=== PATIENT | male | born 1965 | race American Indian/Alaskan Native ===

== ENCOUNTER 2018-10-05 10:02 | Day surgery (SDC) | payer BC ==
[~2018-10-05 10:02] MED LIST: ANCEF/STERILE WATER 2 GM/20 ML IV NR; TORADOL ONE
[2018-10-05] MEDS ORDERED: LACTATED RINGERS 1,000 ML ONE ×2 (11:48→14:15)
[2018-10-05] MEDS ORDERED: SUBLIMAZE ONE ×2 (12:16→13:01)
[2018-10-05] MEDS ORDERED: XYLOCAINE MPF 2% ONE (12:16)
[2018-10-05] MEDS ORDERED: DIPRIVAN 10 MG/ML IV ONE (12:16)
--- NOTE | 2018-10-05 12:51 | Post Operative Note ---
Date of procedure: 10/05/18 Pre-op diagnosis: left renal stone Post-op diagnosis: same Findings: as above Procedure: L ESWL Anesthesia: MARIANO Surgeon: ESAU AUSTIN Estimated blood loss: none Pathology: none Condition: stable Disposition: PACU
--- NOTE | 2018-10-05 12:52 | Discharge Summary ---
Short Stay Discharge Plan Activity: other (no straining) Weight Bearing Status: Full Weight Bearing Diet: low fat, low cholesterol, low salt Special Instructions: other (inc fluisa ) Follow up with: CHAZ ZAIDI MD [Primary Care Provider] - 7 Days DEVEN BARNES MD [Staff Physician] - 7 Days
[2018-10-05] MEDS ORDERED: ZOFRAN ONE (13:23)
--- NOTE | 2018-10-05 13:23 | Operative Report ---
PREOPERATIVE DIAGNOSIS: Large left UPJ stone post stent. POSTOPERATIVE DIAGNOSES: Large left UPJ stone post stent. PROCEDURE: Left lithotripsy. SURGEON: Philippe Steiner MD ANESTHESIA: General. FINDINGS: This is a gentleman with a large stone along the stent left UPJ, now presents for lithotripsy. DESCRIPTION OF PROCEDURE: The patient was brought to the operating room and placed on the operating table. Following induction of anesthesia, stone was well localized easily in both the AP and oblique images. Shocks were begun at 1 kV, increased to a maximum of 8 kV. Excellent fragmentation was achieved. The patient tolerated the procedure well. We had a renal pause. We gradually went up to 8 kV and he may need further procedures to break it up even more, but we had good fragmentation, brought to recovery in stable condition. JOB# [id number] CRISTIANO/CELESTINE
[2018-10-05 14:59] VITALS: BP 133/84
--- NOTE | 2018-10-05 15:24 | Anesthesia Consultation ---
Anesthesia Consult and Med Hx Date of service: 10/05/18 - Airway Anesthetic Teeth Evaluation: Good ROM Head & Neck: Adequate Mental/Hyoid Distance: Adequate Mallampati Class: Class III Intubation Access Assessment: Possibly Difficult - Pulmonary Exam CTA: Yes - Cardiac Exam Cardiac Exam: RRR - Pre-Operative Health Status ASA Pre-Surgery Classification: ASA2 Proposed Anesthetic Plan: General - Pulmonary Hx Smoking: No Hx Sleep Apnea: No (JORGE LUIS PRE SCREEN HIGH RISK) - Cardiovascular System Hx Hypertension: Yes (took amlodipine today) - Central Nervous System CVA: No - Gastrointestinal Hx Gastroesophageal Reflux Disease: No - Endocrine Hx Insulin Dependent Diabetes: No - Other Systems Hx Cancer: No Hx Obesity: Yes - Additional Comments Anesthesia Medical History Comments: No hx anesthetic complications.
--- NOTE | 2018-10-05 15:24 | Anesthesia Day of Surgery ---
Anesthesia Day of Surgery - Day of Surgery Patient Examined: Yes Patient H&P Reviewed: Yes Patient is NPO: Yes
--- NOTE | 2018-10-05 15:24 | Post Anesthesia Evaluation ---
- Post Anesthesia Evaluation Patient Participated: Yes Airway Patent: Yes Stable Respiratory Function: Yes Nausea/Vomiting: No Temp > 96.8F: Yes Pain Manageable: Yes Adequeate Hydration: No
== END 2018-10-05 15:15 | disposition home or self-care (01) ==
LOC: OR 10:02
PROVIDERS: ATTEND Urology
DX: N20.1 Calculus of ureter (principal); H40.9 Unspecified glaucoma; I10 Essential (primary) hypertension; E66.9 Obesity, unspecified; Z68.35 Body mass index [BMI] 35.0-35.9, adult; Z98.890 Other specified postprocedural states; Z79.01 Long term (current) use of anticoagulants; Z79.899 Other long term (current) drug therapy
CPT/HCPCS: 50590; J0690; J1885; J2405; J2704; J3010; J7120

== ENCOUNTER 2019-01-11 13:48 | Day surgery (SDC) | payer BC ==
--- NOTE | 2019-01-11 14:59 | Anesthesia Consultation ---
Anesthesia Consult and Med Hx Date of service: 01/11/19 - Airway Anesthetic Teeth Evaluation: Good ROM Head & Neck: Adequate Mental/Hyoid Distance: Adequate Mallampati Class: Class II Intubation Access Assessment: Good - Pulmonary Exam CTA: Yes - Cardiac Exam Cardiac Exam: RRR - Pre-Operative Health Status ASA Pre-Surgery Classification: ASA2 Proposed Anesthetic Plan: General - Pulmonary Hx Smoking: No Hx Sleep Apnea: No (JORGE LUIS PRE SCREEN HIGH RISK) - Cardiovascular System Hx Hypertension: Yes - Central Nervous System CVA: No - Gastrointestinal Hx Gastroesophageal Reflux Disease: No - Endocrine Hx Insulin Dependent Diabetes: No - Other Systems Hx Cancer: No Hx Obesity: Yes
--- NOTE | 2019-01-11 14:59 | Anesthesia Day of Surgery ---
Anesthesia Day of Surgery - Day of Surgery Patient Examined: Yes Patient H&P Reviewed: Yes Patient is NPO: Yes
[2019-01-11] MEDS ORDERED: LACTATED RINGERS 1,000 ML IV SCH (15:00)
[2019-01-11] MEDS: VERSED IV NR ×2 (15:17→18:08)
[2019-01-11] MEDS ORDERED: ANCEF/STERILE WATER 2 GM/20 ML 2 GM/20 ML SYRINGE IV ONE (18:46)
[2019-01-11] MEDS ORDERED: DIPRIVAN 10 MG/ML IV ONE (18:52)
[2019-01-11] MEDS ORDERED: SUBLIMAZE ONE (18:52)
[2019-01-11] MEDS ORDERED: ANCEF/STERILE WATER 2 GM/20 ML IV NR (19:00)
[2019-01-11] MEDS ORDERED: VERSED ONE (19:06)
[2019-01-11] MEDS ORDERED: ROBINUL ONE (19:29)
[2019-01-11] MEDS ORDERED: ZOFRAN ONE (19:29)
[2019-01-11] MEDS ORDERED: DECADRON ONE (19:29)
[2019-01-11] MEDS ORDERED: XYLOCAINE MPF 2% ONE (19:29)
[2019-01-11] MEDS ORDERED: WATER FOR IRRIG STERILE IR ONE (19:31)
--- NOTE | 2019-01-11 20:27 | Short Stay Summary ---
Short Stay Documentation Date of service: 01/11/19 - History H&P: obtained from office - Allergies and Medications Current Medications: Allergies No Known Allergies Allergy (Verified 10/03/18 14:26) Home Medications Medication Instructions Recorded Confirmed Last Taken Type Bimatoprost [Lumigan 0.01%] 1 drop OP QPM 10/03/18 01/11/19 01/11/19 08:00 History Oxycodone HCl/Acetaminophen 1 each PO PRN PRN 10/03/18 01/11/19 01/11/19 08:00 History [Endocet 7.5-325 mg Tablet] amLODIPine [Norvasc] 5 mg PO DAILY 10/03/18 01/11/19 01/11/19 08:00 History Active Medications Cefazolin Sodium (Ancef/Sterile Water 2 Gm/20 Ml) 2 gm IV PREOP NR Stop: 01/11/19 23:59 Lactated Ringer's (Lactated Ringers) 1,000 mls @ 100 mls/hr IV DIRECT TINY Last Admin: 01/11/19 14:42 Dose: 100 mls/hr Documented by: Midazolam HCl (Versed) 2 mg IV PREOP NR Stop: 01/11/19 23:59 Last Admin: 01/11/19 18:08 Dose: 1 mg Documented by: - Brief post op/procedure progress note Date of procedure: 01/11/19 Pre-op diagnosis: right uret stone mult frags 2 to 4 mm; retained stent Post-op diagnosis: same Procedure: cysto stent pull, left uret eswl Anesthesia: GETA Findings: left uret stones below LP; dispersed and moved w/ eslw Surgeon: MORENITA ACEVES Estimated blood loss: minimal Pathology: none Condition: stable - Hospital course Hospital course: orpacuhome - Disposition Disposition: DC-01 TO HOME OR SELFCARE Short Stay Discharge Plan Activity: advance as tolerated Diet: advance as tolerated Follow up with: MORENITA ACEVES MD [Staff Physician] - 7 Days
[2019-01-11 21:05] VITALS: BP 115/70
--- NOTE | 2019-01-22 09:55 | Operative Report ---
PREOPERATIVE DIAGNOSIS: Left ureteral stones, left retained stent. POSTOPERATIVE DIAGNOSIS: Left ureteral stones, left retained stent. PROCEDURE: Left ESWL with stent removal. SURGEON: Matt Calle M.D. ANESTHESIA: General. SPECIMENS: None. ESTIMATED BLOOD LOSS: Minimal. COMPLICATIONS: None. FINDINGS: Stent removed. Further significant fragmentation of stone. CLINICAL INDICATIONS: Counseled RCBA, antibiotics, SCD. DESCRIPTION OF PROCEDURE: The patient was transferred to OR suite in supine position, anesthesia. Biplanar fluoroscopy was used to target to the proximal J within F2. We delivered approximately 700-800 shocks on the proximal J. Flexible scope passed. We grasped the stent slowly pulled down the stent and we were able to pull the stent out, residual stones multiple fragments within the proximal ureter identified. At this point, we fragmented the stones further, additional shocks were delivered with stone in the mid ureter and also as they moved away from the lower pole more distally, shocks were delivered up to 3000 shock waves. The stones were visibly noted to be significantly decreased in density with additional shocks. At the end of the procedure, the patient was awakened and transferred to PACU in good and stable condition. JOB# [id number] ATS/NTS
== END 2019-01-11 21:55 | disposition home or self-care (01) ==
LOC: OR 13:48
PROVIDERS: ATTEND Urology
DX: N20.1 Calculus of ureter (principal); T83.192A Other mechanical complication of indwelling ureteral stent, initial encounter; H40.9 Unspecified glaucoma; I10 Essential (primary) hypertension; E66.9 Obesity, unspecified; Z98.890 Other specified postprocedural states; Z68.35 Body mass index [BMI] 35.0-35.9, adult; Z79.899 Other long term (current) drug therapy; Y83.8 Other surgical procedures as the cause of abnormal reaction of the patient, or of later complication, without mention of misadventure at the time of the procedure; Y92.89 Other specified places as the place of occurrence of the external cause
CPT/HCPCS: 50590; 52310; A4217; C1758; C1769; J0690; J1100; J2250; J2405; J2704; J3010; J7120